=== PATIENT | female | born 1995 | race Caucasian/White ===

== ENCOUNTER 2020-01-07 10:05 | Inpatient (IN) ==
[2020-01-07] MEDS ORDERED: Lactated Ringers 1000 ml BAG 1,000 ML IV ONE (11:07)
[2020-01-07] MEDS ORDERED: Dinoprostone 10 MG VAG.SUPP VAGINAL ONE (11:07)
[2020-01-07 11:43] LABS: ABS Basophils 0.1 10^3/ul (0-0.2); ABS Eosinophils 0.1 10^3/ul (0-0.6); ABS Lymphocytes 2.2 10^3/ul (1.0-4.8); ABS Monocytes 0.7 10^3/ul (0-0.8); ABS Neutrophils 8.7 10^3/ul (1.5-7.7); Eosinophil % 0.6 %; Hematocrit 37 % (35-47); Hemoglobin 12.8 g/dL (12.0-16.0); Lymphocyte % 18.7 %; Mean Corpuscular HGB Conc 34 g/dL (31-36); Mean Corpuscular Hemoglobin 30 pg (27-31); Mean Corpuscular Volume 87 fL (80-97); Platelet Count 238 10^3/uL (150-450); Red Blood Count 4.29 10^6 /uL (3.70-4.87); Red Cell Distribution Width 14 % (10-15); White Blood Count 11.7 10^3/uL (3.5-10.8)
[2020-01-07 11:47] LABS: Platelet Count 229 10^3/ul (150-450)
[2020-01-07 11:56] LABS: Activated Partial Thrombo Time 26.4 seconds (26.0-38.0); Fibrinogen 463.9 mg/dL (110.8-404.3); INR 0.86 (0.82-1.09)
[2020-01-07 12:18] LABS: Albumin 3.2 g/dL (3.2-5.2); Albumin/Globulin Ratio 1.1 (1-3); BUN/Creatinine Ratio 16.4 (8-20); Calcium 8.8 mg/dL (8.6-10.3); EGFR African American 143.5 (>60); EGFR Non-African American 118.6 (>60); Globulin 2.8 g/dL (2-4); Total Bilirubin 0.3 mg/dL (0.2-1.0)
[2020-01-07 12:20] LABS: Schistocytes ABSENT
[2020-01-07 12:24] LABS: Urine Benzodiazepine Screen None Detected (None Detect); Urine Cannabinoids Screen None Detected (None Detect); Urine Opiates Screen None Detected (None Detect)
[2020-01-07 12:25] LABS: Urine Appearance Clear; Urine Bilirubin Negative (Negative); Urine Blood Negative (Negative); Urine Color Straw; Urine Glucose Negative (Negative); Urine Ketones Negative (Negative); Urine Nitrite Negative (Negative); Urine Protein Negative (Negative); Urine Specific Gravity 1.004 (1.010-1.030); Urine Urobilinogen Negative (Negative)
[2020-01-07] MEDS: Lactated Ringers 1000 ml BAG 1,000 ML IV SCH ×2 (12:52→17:31)
[2020-01-08] MEDS ORDERED: Oxytocin in LR 20 UNITS/1,000 ML BAG IVPB SCH (11:00)
[2020-01-08 12:18] LABS: Urine Total Volume OB 5025 mL
[2020-01-08 12:35] LABS: Ur TP Concentration Obstetric < 4 mg/dL
[2020-01-08] MEDS: Lactated Ringers 1000 ml BAG 1,000 ML IV SCH ×2 (13:58→19:12)
[2020-01-08] MEDS ORDERED: OBEPIDURAL 250 ML EPIDURAL ONE (17:11)
[2020-01-08] MEDS ORDERED: fentaNYL 100 mcg/2 ml 50 MCG/ML VIAL ONE (18:07)
[2020-01-08] MEDS ORDERED: Sodium Citrate/Citric Acid LIQ 15 ML UDC PO PRN (18:38)
[2020-01-08] MEDS ORDERED: Lactated Ringers 1000 ml BAG 500 ML IV PRN ×2 (18:38)
[2020-01-08] MEDS ORDERED: Lactated Ringers 1000 ml BAG 1,000 ML IV ONE (18:38)
[2020-01-08] MEDS ORDERED: EPHEDrine (Pressors) 50 MG/ML VIAL IV PUSH PRN ×2 (18:38)
[2020-01-08] MEDS ORDERED: Phenylephrine 40 mcg/mL 10mL (400mcg) SYRINGE IV PUSH PRN ×2 (18:38)
[2020-01-08] MEDS ORDERED: Lactated Ringers 1000 ml BAG 1,000 ML IV SCH ×2 (19:00→23:00)
[2020-01-08] MEDS ORDERED: OBEPIDURAL 250 ML EPIDURAL SCH (19:00)
[2020-01-08] MEDS ORDERED: Witch Hazel PAD JAR TOPICAL PRN (22:57)
[2020-01-08] MEDS ORDERED: Dibucaine 1% OINT 28.35 GM TUBE PR PRN (22:57)
[2020-01-09 06:11] LABS: ABS Basophils 0.1 10^3/ul (0-0.2); ABS Eosinophils 0.1 10^3/ul (0-0.6); ABS Lymphocytes 2.4 10^3/ul (1.0-4.8); ABS Monocytes 0.8 10^3/ul (0-0.8); ABS Neutrophils 12.3 10^3/ul (1.5-7.7); Eosinophil % 0.4 %; Hematocrit 36 % (35-47); Hemoglobin 12.2 g/dL (12.0-16.0); Lymphocyte % 15.5 %; Mean Corpuscular HGB Conc 34 g/dL (31-36); Mean Corpuscular Hemoglobin 30 pg (27-31); Mean Corpuscular Volume 87 fL (80-97); Mean Platelet Volume 9.1 fL (7.4-10.4); Nucleated Red Blood Cells % 0.1; Platelet Count 191 10^3/uL (150-450); Red Blood Count 4.11 10^6 /uL (3.70-4.87); Red Cell Distribution Width 14 % (10-15); White Blood Count 15.7 10^3/uL (3.5-10.8)
[2020-01-10 13:19] VITALS: BP 132/71
[2020-01-11] MEDS ORDERED: Influenza VAC *QUAD* 2020-21* 0.5 ML SYRINGE IM ONE (09:00)
== END 2020-01-10 14:37 | disposition home or self-care (01) | DRG 560 ==
LOC: MCHOBOUT 10:05 → MCHOB 10:50
PROVIDERS: ADMIT Obstetrics & Gynecology; ATTEND Obstetrics & Gynecology

== ENCOUNTER 2022-05-20 11:44 | Inpatient (IN) ==
[2022-05-20] MEDS ORDERED: Lactated Ringers 1000 ml BAG 1,000 ML IV ONE (12:34)
[2022-05-20] MEDS ORDERED: Buffered Lidocaine 1% SYRIN 1 ml INTRADERM ONE (12:34)
[2022-05-20] MEDS ORDERED: Lactated Ringers 1000 ml BAG 1,000 ML IV SCH (13:00)
[2022-05-20] MEDS ORDERED: miSOPROStol 100 mcg TAB VAGINAL SCH (13:00)
[2022-05-20] MEDS: miSOPROStol 100 mcg TAB PO SCH ×3 (13:02→23:16)
[2022-05-20 13:54] LABS: Urine Benzodiazepine Screen None Detected (None Detect); Urine Cannabinoids Screen None Detected (None Detect); Urine Opiates Screen None Detected (None Detect)
[2022-05-20] MEDS ORDERED: Oxytocin in LR 20,000 MILLI.UNIT/1,000 ML BAG IV SCH (21:15)
[2022-05-20 22:35] LABS: ABS Basophils 0.2 10^3/ul (0-0.2); ABS Eosinophils 0.1 10^3/ul (0-0.6); ABS Monocytes 0.8 10^3/ul (0-0.8); Eosinophil % 1.1 %; Hematocrit 40 % (35-47); Hemoglobin 13.5 g/dL (12.0-16.0); Mean Corpuscular HGB Conc 34 g/dL (31-36); Mean Corpuscular Hemoglobin 29 pg (27-31); Mean Corpuscular Volume 88 fL (80-97); Mean Platelet Volume 9.7 fL (7.4-10.4); Platelet Count 264 10^3/uL (150-450); Red Blood Count 4.61 10^6 /uL (3.70-4.87); Red Cell Distribution Width 13 % (10-15); White Blood Count 13.1 10^3/uL (3.5-10.8)
[2022-05-20] MEDS ORDERED: Penicillin G Potassium IV 5,000,000 UNITS in NS 0.9% 100 ml BAG 100 ML IVPB ONE (23:00)
[2022-05-21] MEDS ORDERED: OBEPIDURAL (200 ML) 200 ML EPIDURAL ONE (01:15)
[2022-05-21] MEDS ORDERED: Lidocaine 1.5% EPI 1:200,000 30 ML SDV ONE (01:15)
[2022-05-21] MEDS: Penicillin G Potassium IV 3,000,000 UNITS in NS 0.9% 100 ml BAG 100 ML IVPB SCH ×2 (04:03→12:09)
[2022-05-21] MEDS ORDERED: Dibucaine 1% OINT 28.35 GM TUBE PR PRN (07:36)
[2022-05-21] MEDS ORDERED: Oxytocin in LR 20,000 MILLI.UNIT/1,000 ML BAG IV SCH (07:41)
[2022-05-21] MEDS ORDERED: Lactated Ringers 1000 ml BAG 1,000 ML IV SCH (08:00)
[2022-05-21] MEDS: Witch Hazel PAD JAR TOPICAL PRN (09:30)
[2022-05-21] MEDS ORDERED: Lidocaine 1% VIAL 10 MG/ML VIAL 30 ML ONE (11:08)
[2022-05-21] MEDS ORDERED: Phenylephrine 40 mcg/mL 10mL (400mcg) SYRINGE ONE (11:09)
[2022-05-22 05:59] LABS: ABS Basophils 0.1 10^3/ul (0-0.2); ABS Eosinophils 0.3 10^3/ul (0-0.6); ABS Lymphocytes 3.2 10^3/ul (1.0-4.8); ABS Monocytes 0.6 10^3/ul (0-0.8); ABS Neutrophils 8.1 10^3/ul (1.5-7.7); Eosinophil % 2.6 %; Hematocrit 33 % (35-47); Hemoglobin 10.8 g/dL (12.0-16.0); Lymphocyte % 25.9 %; Mean Corpuscular HGB Conc 33 g/dL (31-36); Mean Corpuscular Hemoglobin 29 pg (27-31); Mean Corpuscular Volume 89 fL (80-97); Mean Platelet Volume 8.8 fL (7.4-10.4); Platelet Count 184 10^3/uL (150-450); Red Blood Count 3.67 10^6 /uL (3.70-4.87); Red Cell Distribution Width 14 % (10-15); White Blood Count 12.3 10^3/uL (3.5-10.8)
[2022-05-22] MEDS ORDERED: Measles, Mumps,Rubella VACC 0.5 ML/VIAL SUBCUT ONE (10:29)
[2022-05-22] MEDS: Witch Hazel PAD JAR TOPICAL PRN (21:34)
[2022-05-22] MEDS: miSOPROStol 100 mcg TAB PO SCH (22:53)
[2022-05-22] MEDS: Penicillin G Potassium IV 3,000,000 UNITS in NS 0.9% 100 ml BAG 100 ML IVPB SCH ×2 (22:55→22:56)
[2022-05-23] MEDS ORDERED: Measles, Mumps,Rubella VACC 0.5 ML/VIAL SUBCUT ONE (11:00)
[2022-05-23 12:22] VITALS: BP 139/84
== END 2022-05-23 15:38 | disposition home or self-care (01) | DRG 560 ==
LOC: MCHOBOUT 11:44 → MCHOB 12:22
PROVIDERS: ADMIT Registered Nurse; ATTEND Registered Nurse